=== PATIENT | female | born 2000 | race Caucasian/White ===

== ENCOUNTER 2022-03-26 18:23 | Emergency (ER) | payer MEDICAID ==
[~2022-03-26] VITALS: Ht 167.6 cm; Wt 56.4 kg
[2022-03-26 18:51] VITALS: BP 119/71
--- NOTE | 2022-03-26 18:58 | NUR ---
BIB SELF C/O TOOTH PAIN, MOUTH PAIN X 3 DAYS. PMH: ANXIETY.
[2022-03-26] MEDS ORDERED: [UNRECOGNIZED DRUG - CODE] MM (19:15)
[2022-03-26] MEDS ORDERED: CLIN300C73 PO (19:15)
[2022-03-26 19:41] VITALS: BP 119/71
--- NOTE | 2022-03-26 19:41 | NUR ---
Patient discharged with v/s stable. Written and verbal after care instructions given and explained. Patient alert, oriented and verbalized understanding of instructions. Ambulatory with steady gait. All questions addressed prior to discharge. ID band removed. Patient advised to follow up with PMD. Rx of CLINDAMYCIN AND BENZOCAINE given. Patient educated on indication of medication including possible reaction and side effects. Opportunity to ask questions provided and answered.
== END 2022-03-26 19:41 | disposition home or self-care (01) ==
LOC: MED 18:23
DX: K08.89 Other specified disorders of teeth and supporting structures (principal); K12.0 Recurrent oral aphthae; Z88.0 Allergy status to penicillin; Z91.040 Latex allergy status; Z79.899 Other long term (current) drug therapy
CPT/HCPCS: 99283